=== PATIENT | female | born 1975 ===

== ENCOUNTER 2017-01-22 10:27 | Emergency (ER) | payer OTHER ==
[2017-01-22 10:27] VITALS: BMI 24.5
[2017-01-22 11:38] LABS: RBC URINE < 1 /hpf (0-3); URINE BACTERIA RARE (<OCC); URINE BILIRUBIN NEGATIVE (NEGATIVE); URINE BLOOD NEGATIVE (NEGATIVE); URINE COLOR Yellow (YELLOW); URINE GLUCOSE (UA) NORMAL (Normal); URINE KETONE NEGATIVE (NEGATIVE); URINE LEUKOCYTE ESTERASE NEG Leu/uL (Negative); URINE PROTEIN NEGATIVE (NEGATIVE); URINE UROBILINOGEN NORMAL mg/dL (0.2-1.0); WBC URINE 1 /hpf (0-5)
--- NOTE | 2017-01-22 11:50 | C.PDOC ---
History Of Present Illness 41 y/o female presents to ED for evaluation of vaginal itching, vaginal discharge, and dysuria which started 1 week ago. Pt notes using unknown OTC cream without any relief. Notes that she recently finished taking antibiotics for UTI yesterday. Pt admits to being sexually active. Denies fever, chills, back pain, abdominal pain, urinary frequency, or hematuria. Time Seen by Provider: 01/22/17 11:05 Chief Complaint (Nursing): Female Genitourinary History Per: Patient History/Exam Limitations: language barrier (social security specialist used) Onset/Duration Of Symptoms: Days (1 week) Current Symptoms Are (Timing): Still Present Associated Symptoms: Urinary Symptoms. denies: Nausea, Vomiting, Diarrhea, Back Pain Alleviating Factors: None Recent travel outside of the [place]: No Additional History Per: Patient Abnormal Vaginal Bleeding: No Past Medical History Reviewed: Historical Data, Nursing Documentation, Vital Signs Vital Signs: Last Vital Signs Temp 97.9 F 01/22/17 12:20 Pulse 68 01/22/17 12:20 Resp 17 01/22/17 12:20 BP 113/70 01/22/17 12:20 Pulse Ox 98 01/22/17 14:36 Family History: States: Unknown Family Hx - Social History Hx Alcohol Use: No Hx Substance Use: No - Immunization History Hx Tetanus Toxoid Vaccination: No Hx Influenza Vaccination: No Hx Pneumococcal Vaccination: No Review Of Systems Except As Marked, All Systems Reviewed And Found Negative. Constitutional: Negative for: Fever, Chills Gastrointestinal: Negative for: Nausea, Vomiting, Abdominal Pain, Diarrhea Genitourinary: Positive for: Dysuria, Vaginal Discharge (vaginal itching). Negative for: Frequency, Incontinence, Hematuria, Vaginal Bleeding Musculoskeletal: Negative for: Back Pain Physical Exam - Physical Exam Appears: Non-toxic, No Acute Distress Skin: Normal Color, Warm, Dry, No Rash Head: Atraumatic, Normacephalic Eye(s): bilateral: Normal Inspection, EOMI Nose: Normal Oral Mucosa: Moist Chest: Symmetrical Respiratory: No Accessory Muscle Use Gastrointestinal/Abdominal: Soft, No Tenderness Back: No CVA Tenderness, No Vertebral Tenderness Pelvic: No Normal External Exam (Mild erythema. No ulcerations, or vesicles), No Vaginal Bleeding, Vaginal Discharge (white thick curdy vaginal discharge), No Cervical Motion Tenderness, No Adnexal Tenderness Extremity: Normal ROM Neurological/Psych: Oriented x3, Normal Speech ED Course And Treatment O2 Sat by Pulse Oximetry: 98 (on RA) Pulse Ox Interpretation: Normal Progress Note: UA ordered and reviewed. Chlamydia/GC, and urine culture ordered. Pt was given Diflucan. Pt is being discharged home and is instructed to follow up with OBGYN on her scheduled appointment. Disposition - Disposition Disposition: HOME/ ROUTINE Disposition Time: 11:42 Condition: STABLE Additional Instructions: Vaya a fitzpatrick mdico o la clnica en 2-5 gusman sin falta, para mas evaluacin. [place] los medicamentos gallo indicado. Volver a la mainor de emergencia en cualquier momento si los sntomas persisten o empeoran. Prescriptions: Fluconazole [Diflucan] 150 mg PO DAILY #1 tab Miconazole [Miconazole 7] 100 mg VG HS #1 sup Instructions: Vulvovaginal Candidiasis (ED) Forms: [employer] (Turkish) Print Language: SOMALI - Clinical Impression Clinical Impression: Vulvovaginal candidiasis - PA / ADOPTION MANAGER / Resident Statement MD/DO has reviewed & agrees with the documentation as recorded. - Scribe Statement The provider has reviewed the documentation as recorded by the Scribe Umair Vega All medical record entries made by the Scribe were at my direction and personally dictated by me. I have reviewed the chart and agree that the record accurately reflects my personal performance of the history, physical exam, medical decision making, and the department course for this patient. I have also personally directed, reviewed, and agree with the discharge instructions and disposition.
[2017-01-22 12:21] VITALS: BP 113/70; PULSE 68; RESP 17; TEMP 97.9
[2017-01-22 12:50] VITALS: O2SAT 98
== END 2017-01-22 12:21 | disposition home or self-care (01) ==
LOC: C.ER 10:27
DX: B37.3 Candidiasis of vulva and vagina (principal)

== ENCOUNTER 2017-12-27 20:12 | Emergency (ER) | payer OTHER ==
[2017-12-27 20:12] VITALS: BMI 24.5
[2017-12-27 20:32] VITALS: O2SAT 100
[2017-12-27 21:01] LABS: SQUAMOUS EPITHIAL 6 /hpf (0-5); URINE BILIRUBIN NEGATIVE (NEGATIVE); URINE BLOOD 1+ (NEGATIVE); URINE CLARITY Clear (Clear); URINE COLOR Yellow (YELLOW); URINE GLUCOSE (UA) NORMAL (Normal); URINE LEUKOCYTE ESTERASE NEG Leu/uL (Negative); URINE PROTEIN NEGATIVE (NEGATIVE); URINE UROBILINOGEN NORMAL mg/dL (0.2-1.0)
[2017-12-27 21:02] LABS: HCG,QUALITATIVE URINE NEGATIVE (NEGATIVE)
[2017-12-27] MEDS ORDERED: cefTRIAXone (Rocephin) 250 mg Inj IM STA (21:44)
--- NOTE | 2017-12-27 22:30 | C.PDOC ---
History Of Present Illness 42 year old female presents to the ED c/o vaginal pain, dysuria, dyspareunia for the past 2 days. Patient denies fever, chills, nausea, vomiting, diarrhea, back pain, rash. Time Seen by Provider: 12/27/17 20:44 Chief Complaint (Nursing): Female Genitourinary History Per: Patient History/Exam Limitations: no limitations Onset/Duration Of Symptoms: Days (2) Current Symptoms Are (Timing): Still Present Quality Of Discomfort: "Pain" Associated Symptoms: Urinary Symptoms. denies: Nausea, Vomiting, Diarrhea Recent travel outside of the [place]: No Additional History Per: Patient Abnormal Vaginal Bleeding: No Past Medical History Reviewed: Historical Data, Nursing Documentation, Vital Signs Vital Signs: Last Vital Signs Temp 98.2 F 12/27/17 22:42 Pulse 76 12/27/17 22:42 Resp 18 12/27/17 22:42 BP 119/79 12/27/17 22:42 Pulse Ox 100 12/28/17 01:21 - Medical History PMH: No Chronic Diseases Surgical History: No Surg Hx Family History: States: Unknown Family Hx - Social History Hx Alcohol Use: No Hx Substance Use: No - Immunization History Hx Tetanus Toxoid Vaccination: No Hx Influenza Vaccination: No Hx Pneumococcal Vaccination: No Review Of Systems Constitutional: Negative for: Fever, Chills Cardiovascular: Negative for: Chest Pain Respiratory: Negative for: Cough, Shortness of Breath Gastrointestinal: Negative for: Nausea, Vomiting, Abdominal Pain Genitourinary: Positive for: Dysuria, Pelvic Pain. Negative for: Hematuria Skin: Negative for: Rash Physical Exam - Physical Exam Appears: Non-toxic, No Acute Distress Skin: Normal Color, Warm, Dry Head: Atraumatic, Normacephalic Eye(s): bilateral: Normal Inspection Neck: Normal ROM, Supple Chest: Symmetrical Cardiovascular: Rhythm Regular Respiratory: Normal Breath Sounds, No Rales, No Rhonchi, No Wheezing Gastrointestinal/Abdominal: Soft, No Tenderness, No Guarding, No Rebound Pelvic: Normal External Exam, Vaginal Discharge (whitish minimal ), Cervical Motion Tenderness, No Adnexal Tenderness Extremity: Normal ROM, No Tenderness, No Swelling Neurological/Psych: Oriented x3, Normal Speech, Normal Motor, Normal Sensation Gait: Steady ED Course And Treatment O2 Sat by Pulse Oximetry: 100 (ON RA) Pulse Ox Interpretation: Normal Progress Note: Plan: - Chlamydia test. - Rocephin IM. - Zithromax PO. Patient was advised to have sexual partner checked as well and need LIBRARY SCIENCE INSTRUCTOR F/U. Disposition Counseled Patient/Family Regarding: Diagnosis, Need For Followup - Disposition Referrals: Cassie Guadalupe [Staff Provider] - Disposition: HOME/ ROUTINE Disposition Time: 22:30 Condition: STABLE Additional Instructions: please follow up with PMD/ LIBRARY SCIENCE INSTRUCTOR Return to ER if worse Instructions: Vaginitis Forms: [employer] (Setswana) Print Language: AMHARIC - Clinical Impression Clinical Impression: Cervicitis - PA / MARKETING TECHNOLOGY SPECIALIST / Resident Statement MD/DO has reviewed & agrees with the documentation as recorded. - Scribe Statement The provider has reviewed the documentation as recorded by the Scribe Reagan Maki All medical record entries made by the Ezequielibdenisse were at my direction and personally dictated by me. I have reviewed the chart and agree that the record accurately reflects my personal performance of the history, physical exam, medical decision making, and the department course for this patient. I have also personally directed, reviewed, and agree with the discharge instructions and disposition.
[2017-12-27 22:45] VITALS: BP 119/79; PULSE 76; RESP 18; TEMP 98.2
== END 2017-12-27 22:42 | disposition home or self-care (01) ==
LOC: C.ER 20:12
DX: N72 Inflammatory disease of cervix uteri (principal)
CPT/HCPCS: 81001; 84703; 87491; 87591; 96372; 99283; J0696